=== PATIENT | female | born 1965 | race Caucasian/White ===

== ENCOUNTER 2024-10-28 09:00 | Outpatient (RCR) | payer OTHER, SELFPAY | END 2024-10-28 10:51 | disposition home or self-care (01) | LOC: HO.OT 09:00 | PROVIDERS: PCP Physician Assistant Medical; Visit Provider Family Medicine | DX: M25.522 Pain in left elbow (principal); M79.644 Pain in right finger(s) | CPT/HCPCS: 97035; 97110; 97140; 97165 ==